=== PATIENT | female | born 1935 | race Hispanic/Latino ===

== ENCOUNTER 2021-12-26 09:58 | Day surgery (SDC) | payer MEDICARE ==
[~2021-12-26] VITALS: Ht 149.9 cm; Wt 53.5 kg
[2021-12-26] VITALS (8 sets, daily range): BP systolic 125–155; BP diastolic 55–92
[2021-12-26 11:20] LABS: BASOPHILS % (AUTO) 0.6 % (0.0-5.0); EOSINOPHILS % (AUTO) 1.5 % (0.0-8.0); LYMPHOCYTES % (AUTO) 17.5 % (21.0-51.0); MEAN CORPUSCULAR HEMOGLOBIN 29.1 pg (27.0-33.0); MEAN CORPUSCULAR HGB CONC 30.3 g/dL (32.0-36.0); MEAN CORPUSCULAR VOLUME 96.3 fL (79-99); MONOCYTES % (AUTO) 4.6 % (3.0-13.0); NEUTROPHILS % (AUTO) 73.1 % (40.0-77.0); NUCLEATED RED BLOOD CELLS 0.2 % (0.0-0.19); PLATELET COUNT (AUTO) 226 K/uL (130-400); RED BLOOD CELL COUNT(AUTO) 4.05 MIL/uL (4.00-5.50); RED CELL DISTRIBUTION WIDTH 14.5 % (11.0-15.5); WHITE BLOOD COUNT (AUTO) 10.3 K/uL (4.8-10.8)
[2021-12-26] MEDS ORDERED: CEFAZOLIN SODIUM 1 GM VIAL ONE ×2 (11:31→11:37)
[2021-12-26] MEDS ORDERED: 0.9%NACL 1000ML 1,000 ML IV ONE (11:37)
[2021-12-26 11:44] LABS: INR 1.36 (0.85-1.15); PROTHROMBIN TIME 14.6 SEC (9.6-11.6)
[2021-12-26] MEDS ORDERED: PROPOFOL 10 MG/ML 20ML VIAL IV ONE (12:08)
[2021-12-26] MEDS ORDERED: ACET325T51 PO (13:37)
[2021-12-26] MEDS ORDERED: POLY17PO4 PO (14:28)
[2021-12-26] MEDS ORDERED: INSU100V12 SQ (14:28)
[2021-12-26] MEDS ORDERED: ATOR40TA71 PO (14:28)
[2021-12-26] MEDS ORDERED: CITA-107 PO (14:28)
[2021-12-26] MEDS ORDERED: [UNRECOGNIZED DRUG - OTHER] PO (14:28)
[2021-12-26] MEDS ORDERED: HYDR-3830 PO (14:28)
[2021-12-26] MEDS ORDERED: LISI10TA24 PO (14:28)
[2021-12-26] MEDS ORDERED: DICL100G31 TP (14:28)
[2021-12-26] MEDS ORDERED: ASPI-1005 PO (14:28)
[2021-12-26] MEDS ORDERED: CARB1TAB35 PO (14:28)
[2021-12-26] MEDS ORDERED: PANT40GR PO (14:28)
[2021-12-26] MEDS ORDERED: FERR-72 PO (14:28)
[2021-12-26] MEDS ORDERED: SENN1TAB72 PO (14:28)
[2021-12-26] MEDS ORDERED: RISP1TAB98 PO (14:28)
[2021-12-26] MEDS ORDERED: RANO500T6 PO (14:28)
[2021-12-26] MEDS ORDERED: PROP10TA10 PO (14:28)
== END 2021-12-26 14:19 | disposition home or self-care (01) ==
LOC: DAH 09:58
PROVIDERS: ATTEND Internal Medicine Gastroenterology
DX: R62.7 Adult failure to thrive (principal); D50.9 Iron deficiency anemia, unspecified; K21.00 Gastro-esophageal reflux disease with esophagitis, without bleeding; K44.9 Diaphragmatic hernia without obstruction or gangrene; K29.00 Acute gastritis without bleeding; I48.91 Unspecified atrial fibrillation; I10 Essential (primary) hypertension; E78.5 Hyperlipidemia, unspecified; F02.80 Dementia in other diseases classified elsewhere, unspecified severity, without behavioral disturbance, psychotic disturbance, mood disturbance, and anxiety; I25.10 Atherosclerotic heart disease of native coronary artery without angina pectoris; G20 Parkinson's disease; Z82.49 Family history of ischemic heart disease and other diseases of the circulatory system; Z86.73 Personal history of transient ischemic attack (TIA), and cerebral infarction without residual deficits; Z68.23 Body mass index [BMI] 23.0-23.9, adult; Z79.82 Long term (current) use of aspirin; Z79.01 Long term (current) use of anticoagulants; Z79.899 Other long term (current) drug therapy; Z90.710 Acquired absence of both cervix and uterus; Z90.49 Acquired absence of other specified parts of digestive tract; Z98.890 Other specified postprocedural states; Z95.0 Presence of cardiac pacemaker; Z90.89 Acquired absence of other organs
CPT/HCPCS: 43246; 85025; 85610; 85730; 82948; 87426; 36415; 93005; J0690 ×2; J7030; J2704; A4620; A4215; A4223; A4222; A4221; A4663; A4606